=== PATIENT | female | born 1990 ===

== ENCOUNTER 2017-01-28 23:30 | Emergency (ER) | payer OTHER ==
--- NOTE | 2017-01-29 00:15 | OBHP ---
Datetime: 01/28/2017 23:56 IP Adm Impression: Term, intrauterine ; No Active Labor; Intact Membranes IP Admit Plan: Discharge home Admit Comment, IP Provider: 27 y.o. , SIOBHAN 02/02/17 by TATYANA alvarado 39w 2d, c/o contractions onset 1000 hours, then pain scale 5/10 and occurring every 15 minutes. Pain increased in frequency, now ev luis eduardo 7 minutes; still 5/10. (+) AFM; denies LOF, VB. care - [facility]; 2 visits. Migrated fr [facility] 1 month ago - had approximately 6 visits there. Ignacio has a portable card with some docu mentaton of visits and limited results: 06/03/2016 and 10/19/2016: 1)VDRL and HIV negative x 2 ; 2) glucose 73 and 81. 1st visit 05/30; last visit 12/22; 5 visits. [facility] SIOBHAN 02/02/17. Blood type A+. P Ob: Primip P [employer]: 13 x every 2 months x 4. Denies STIs or abnormal Pap PMH: denies PSH: denies NKDA Meds: PNV Soc Hx; denies tobacco, illicit drug or EtOH use. 1yr 5 mo; in [place]. Lives wi th her paternal aunt. Unemployed. Fam hx: Mother alive 52 - HTN. Father alive 49 - no med issues. No fam h/o cancer P.E.: as above. WD in NAD; uncomfortable, able to complete sentences. Awake, alert, oriented to t natividad, person and place. Pleaasant and cooperative Assessment: 27 y.o. P0, 39w 2d, prodromal labor. Late transfer of care. GBS unknown. C ategory 1 tracing. Clinically stable Plan: 1) Discharge home 2) Reviewed S/S labor 3) Keep prevously scheduled visits, if undelivered. Pelvic Type - PN: Adequate Extremities - PN: Normal Abdomen - PN: Normal Back - PN: Normal Breast - PN: Not Done Lungs - PN: Normal Heart - PN: Normal Thyroid - PN: Not Done Neurologic - PN: Normal HEENT - PN: Normal General - PN: Normal FHR - Baseline A Provider: 135 Membranes, Provider: Intact Contraction Comments Provider: 6-7 Comments, ACOG Physical Exam: Abdomen: Gravid. Moderately tense with contractions. Fundal height 37.5 cm All other systems reviewed and are negative Gestation - Est Wks by US: 39w 2d EGA AdmitDate IP: 39.3 Vital Signs Provider: Reviewed; Within Normal Limits IP Chief Complaint: Uterine contractions NICHD Variability Prov Fetus A: Moderate 6-25bpm NICHD Accel Fetus A IP Provider: 15X15 FHR Category Provider Fetus A: Category I NICHD Decel Fetus A IP Provider: None Dilatation, Provider: 2 Effacement, Provider: 60 Station, Provider: 0 Genitourinary Exam: Normal DTRs - PN: Not Done
[2017-01-29 04:31] VITALS: BP 114/68; PULSE 71; RESP 18; TEMP 98.9
== END 2017-01-29 00:16 | disposition home or self-care (01) ==
LOC: C.EROB 23:30
DX: O47.1 False labor at or after 37 completed weeks of gestation (principal); Z3A.39 39 weeks gestation of pregnancy

== ENCOUNTER 2017-01-29 12:27 | Inpatient (IN) | payer SELFPAY ==
--- NOTE | 2017-01-29 12:42 | OBADHP ---
Datetime: 01/29/2017 12:39 Admit Comment, IP Provider: at 39+weeks came with cts started last night, irrg 10/16,no vb, lof, +fm. 10/16. obhx primi pmh de med pnv ll nkda psh den soch de ve /-1 a/p at 39=weks in labor admit to l_d npo/ivf labs pain trinity cnt dipti and efm anticipte Pelvic Type - PN: Adequate Extremities - PN: Normal Abdomen - PN: Normal Back - PN: Normal Breast - PN: Normal Lungs - PN: Normal Heart - PN: Normal Thyroid - PN: Normal Neurologic - PN: Normal HEENT - PN: Normal General - PN: Normal FHR - Baseline A Provider: 130 Contraction Comments Provider: irrg Comments, ACOG Physical Exam: gravid,non tender ext no edema,no calf ten IP Hx Assessment: The History has been Reviewed and is Current Vital Signs Provider: Reviewed; Within Normal Limits IP Chief Complaint: Uterine contractions NICHD Variability Prov Fetus A: Moderate 6-25bpm NICHD Accel Fetus A IP Provider: 15X15 FHR Category Provider Fetus A: Category I Dilatation, Provider: 3 Effacement, Provider: 100 Station, Provider: -1 Genitourinary Exam: Normal DTRs - PN: Normal EGA AdmitDate IP: 39.3 IP Adm Impression: Term, intrauterine ; Active labor IP Admit Plan: Admit to unit; Initiate labor protocol Datetime: 01/28/2017 23:56 Membranes, Provider: Intact Gestation - Est Wks by US: 39w 2d NICHD Decel Fetus A IP Provider: None
[2017-01-29] MEDS ORDERED: Penicillin G 5 Million Unit Vial IVPB ONE (12:44)
[2017-01-29 12:45] VITALS: BMI 26.9
[2017-01-29] MEDS ORDERED: Lactated Ringer's 1,000 ML IV SCH (12:45)
[2017-01-29] MEDS ORDERED: Oxytocin 30 UNIT 30 UNITS/500 ML BAG IV PRN (12:53)
[2017-01-29 13:15] LABS: BASO # 0.1 K/uL (0.0-0.2); BASO % 0.5 % (0.0-2.0); EOS % 0.1 % (0.0-4.0); HEMATOCRIT 39.3 % (34.0-47.0); LYMPH # 1.3 K/uL (1.0-4.3); LYMPH % 11.3 % (20.0-40.0); MEAN CELL VOLUME 87.7 fL (81.0-99.0); MEAN CORPUSCULAR HEMOGLOBIN 29.9 pg (27.0-31.0); MEAN CORPUSCULAR HGB CONC 34.1 g/dL (33.0-37.0); MEAN PLATELET VOLUME 8.8 fL (7.2-11.7); MONO # 0.6 K/uL (0.0-0.8); NRBC % 0.1 % (0.0-2.0); RED CELL DISTRIBUTION WIDTH 14.3 % (11.5-14.5); WHITE BLOOD COUNT 11.8 K/uL (4.8-10.8)
[2017-01-29 13:20] LABS: RBC URINE < 1 /hpf (0-3); URINE BILIRUBIN NEGATIVE (NEGATIVE); URINE BLOOD 1+ (NEGATIVE); URINE COLOR Yellow (YELLOW); URINE GLUCOSE (UA) NORMAL (Normal); URINE KETONE 2+ mg/dL (NEGATIVE); URINE LEUKOCYTE ESTERASE NEG Leu/uL (Negative); URINE PROTEIN NEGATIVE (NEGATIVE); URINE UROBILINOGEN NORMAL mg/dL (0.2-1.0); WBC URINE < 1 /hpf (0-5)
[2017-01-29 13:29] LABS: ALB/GLOB RATIO 0.9 (1.0-2.1); ALKALINE PHOSPHATASE 158 U/L (38-126); ALT/SGPT 33 U/L (9-52); AST/SGOT 21 U/L (14-36); BILIRUBIN,TOTAL 0.4 mg/dL (0.2-1.3); BLOOD UREA NITROGEN 8 mg/dL (7-17); CALCIUM 9.2 mg/dl (8.6-10.4); CARBON DIOXIDE 23 mmol/L (22-30); CHLORIDE 101 mmol/L (98-107); GFR AFRICAN-AMERICAN > 60; GLUCOSE,RANDOM 100 mg/dL (65-105); POTASSIUM 3.5 mmol/L (3.6-5.2); SODIUM 133 mmol/L (132-148); TOTAL PROTEIN 7.8 g/dL (6.3-8.3)
[2017-01-29] MEDS ORDERED: Bupivacaine 0.125%/FentaNYL 200 ML EPI ONE (13:50)
[2017-01-29] MEDS ORDERED: Oxytocin 30 UNIT 30 UNITS/500 ML BAG IV ONE (14:13)
[2017-01-29] MEDS ORDERED: Penicillin G Potassium 2.5 MU in Dextrose 5% In Water 50 ML IV SCH (17:30)
[2017-01-29] MEDS ORDERED: Oxycodone/Acetaminophen 5/325 mg Tab PO PRN (18:15)
[2017-01-29] MEDS ORDERED: Benzocaine/Menthol 20%-0.5% Topical Spray (60 ml) TOP PRN (18:15)
--- NOTE | 2017-01-29 18:32 | OBDS ---
MATERNAL INFORMATION Provider Comments: baby deliverd in oanh. end clean no com LABOR SUMMARY EDC: 02/02/2017 00:00 No. Babies in Womb: 1 STAGES OF LABOR Stage 3 hrs: 0 Stage 3 min: 3 VAGINAL DELIVERY Episiotomy: Right Mediolateral Laceration Extension: N/A Laceration Repair Note: repaired with 3 chromic Sponge Count Correct: Yes Sharps Count Correct: Yes BABY A INFORMATION Infant Delivery Date/Time: 01/29/2017 18:21 Method of Delivery: Vaginal Born in Route : Yes : N/A Forceps: N/A Vacuum Extraction: N/A Shoulder Dystocia : No SHOULDER DYSTOCIA BABY A Delivery Date/Time: 01/29/2017 18:21 PRESENTATION/POSITION BABY A Presentation: Cephalic Cephalic Presentation: Vertex Vertex Position: Left Occipital Anterior Breech Presentation: N/A PLACENTA INFORMATION BABY A Placenta Delivery Time : 01/29/2017 18:24 Placenta Method of Delivery: Spontaneous Placenta Status: Delivered SCORES BABY A Heart Rate 1 min: >100 bpm Resp Effort 1 min: Good Cry Reflex Irritability 1 min: Cough or Sneeze or Pulls Away Muscle Tone 1 min: Active Motion Color 1 min: Body [place], Extremities Blue Resuscitation Effort 1 min: Tactile Stimulation SCORE 1 MIN: 9 Heart Rate 5 min: >100 bpm Resp Effort 5 min: Good Cry Reflex Irritability 5 min: Cough or Sneeze or Pulls Away Muscle Tone 5 min: Active Motion Color 5 min: Body [place], Extremities Blue Resuscitation Effort 5 min: N/A SCORE 5 MIN: 9 INFANT INFORMATION BABY A Gestational Age at Delivery: 39.3 Gestational Status: Term Infant Outcome : Liveborn Condition : Stable Sex: Female WEIGHT/LENGTH BABY A Birthweight (gms): 2605 Infant Weight (lb): 5 Infant Weight (oz): 12 Length Inches: 18.00 Infant Length cms: 45.7 CORD INFORMATION BABY A Nuchal Cord : N/A Cord Blood Taken: Yes ASSESSMENT BABY A Infant Complications: None Physical Findings at Delivery: Within Normal Limits Infant Respirations: Appears Normal [employer] Called : No Care By: Mani Lombardo RN Transferred To: Remains with Mother
[2017-01-30 08:07] LABS: HEMATOCRIT 35.5 % (34.0-47.0); MEAN CORPUSCULAR HEMOGLOBIN 30.2 pg (27.0-31.0); MEAN CORPUSCULAR HGB CONC 34.3 g/dL (33.0-37.0); MEAN PLATELET VOLUME 8.8 fL (7.2-11.7); RED CELL DISTRIBUTION WIDTH 13.9 % (11.5-14.5); WHITE BLOOD COUNT 13.3 K/uL (4.8-10.8)
--- NOTE | 2017-01-30 08:53 | OBPPN ---
Datetime: 01/30/2017 07:12 PP Pain Prov: Within normal limits PP Nausea Prov: Denies PP Flatus Prov: Yes PP BM Prov: No PP Comments Phys Exam Prov: Fundus firm below umbilicus PP Impression Prov: Normal progression PP Plan Prov: Continue present management PP Progress Note Prov: Patient seen and examined at bedside. Per nursing no acute events overnight. Patient is doing well, having mild pain. Lochia is mild. Urinating without difficulty. Ambulating and tolerating diet. Passing flatus, no BM. Breast and bottle feeding. Denies headaches, dizziness, cp, palpitations, sob, urinary symptoms VS: 91/60 78 98.5 Gen: AAOx3 Abd: Soft, fundus firm below umbilicus Ext: No clubbing, cyanosis, edema; no calf tenderness Labs: 11.8>13.4/39.3<275 F/U am CBC A positive Rubella unknown A/P: 27 year old at 39w3d s/p with RML Episiotomy PPD#1 1. Stable, afebrile 2. Pain control - tylenol and motrin prn 3. F/U am CBC, rubella 4. Encourage ambulation and hydration 5. Encourage breast feeding 6. F/U social work consult - [facility] 7. Anticipate d/c home tomorrow 8. Plan d/w attending Viviana Chin DO PGY- dr mustafa agrees with above Vital Signs Provider PP: Reviewed; Within Normal Limits
[2017-01-31 07:41] VITALS: BP 99/68; PULSE 79; RESP 18; TEMP 98.5; O2SAT 96
[2017-01-31] MEDS ORDERED: Influenza Vaccine 60 mcg/0.5 mL SYR (4YR UP) IM ONE (10:00)
--- NOTE | 2017-01-31 20:02 | OBPPN ---
Datetime: 01/31/2017 09:02 PP Pain Prov: Within normal limits PP Nausea Prov: Denies PP Flatus Prov: Yes PP BM Prov: No PP Impression Prov: Normal progression PP Plan Prov: Continue present management; Discharge PP Progress Note Prov: Patient seen and examined at bedside. Per nursing no acute events overnight. Patient is doing well, pain is controlled. Lochia is mild. Patient is ambulating and tolerating diet. Urinating without difficulty. Passing flatus and BM. Breast and bottle feeding. Denies headaches, di zziness, cp, palpitations, sob, urinary symptoms. VS: 99/68 79 98.5 Gen: AAOx3 Abd: Soft, fundus firm below umbilicus Ext: No clubbing, cyanosis, edema; no calf tenderness Labs: 11.8>13.4/39.3<275 13.3>12.2/35.5<233 A positive Rubella immune A/P: 27 year old at 39w3d s/p with RML episiotomy PPD#2 1. Stable, afebrile 2. Pain control - tylenol and motrin prn 3. Encourage ambulation and hydration 4. Encourage breast feeding 5. Continue routine care 6. Social work consult pending - [facility] 7. Anticipate d/c home today once cleared by social work - pelvic rest x 6 weeks, f/u with clinic in 6 weeks 8. Plan d/w attending Viviana Chin DO PGY-1 Pt d/w the resident and I agree with the above Vital Signs Provider PP: Reviewed
--- NOTE | 2017-01-31 20:02 | OBDCSUM ---
Datetime: 01/31/2017 08:33 Discharged to, Provider: Home Follow up at, Provider: yessi Disch Instr Activity: Normal activity Disch Instr Diet: Regular Discharge Instructions, Provider: Routine instructions given Discharge Diagnosis, Provider: Term Delivered Discharge Time: 01/31/2017 13:40 Follow up in weeks, Provider: 6 weeks Disch Referrals: Voice Teacher Contraception discussed, Prov: Yes Disch Activity Restrictions: No lifting; Minimize stair-climbing; No sexual activity; Nothing in vag barry - [place], tampons, douche Discharge Comment, Provider: S/P , Clinically stable Discharge Diagnosis Prov Other: S/P , Clinically stable
== END 2017-01-31 13:40 | disposition home or self-care (01) | DRG 775 ==
LOC: C.EROB 12:27 → C.4D 12:44 → C.4M 20:35
PROVIDERS: ADMIT Obstetrics & Gynecology; ATTEND Obstetrics & Gynecology
PROC: 10E0XZZ Delivery of Products of Conception, External Approach (ICD-10-PCS; principal; 2017-01-29)
PROC: 0W8NXZZ Division of Female Perineum, External Approach (ICD-10-PCS; 2017-01-29)
DX: O80 Encounter for full-term uncomplicated delivery (principal); Z37.0 Single live birth; Z3A.39 39 weeks gestation of pregnancy